=== PATIENT | female | born 1990 | race Two or more races ===

== ENCOUNTER 2017-09-16 09:14 | Emergency (ER) | payer OTHER ==
[~2017-09-16] VITALS: Ht 157.5 cm; Wt 63.5 kg
--- NOTE | 2017-09-16 09:16 | NUR ---
AAOX3, C/O LOWER ABDOMINAL PAIN SINCE LAST NIGHT, DENIES N/V/D. RR IS EVEN AND UNLABORED WITH NAD NOTED. SKIN IS WARM AND DRY. AWAITING MD FOR EVAL.
[2017-09-16 10:20] LABS: BASOPHILS # (AUTO) 0.1 /CMM (0.0-0.2); EOSINOPHILS % (AUTO) 1.9 % (0.0-6.0); HEMATOCRIT 39 % (33-45); HEMOGLOBIN 13.6 g/dL (11.5-14.8); LYMPHOCYTES # (AUTO) 1.7 /CMM (0.8-4.8); LYMPHOCYTES % (AUTO) 29.9 % (20.0-44.0); MEAN CORPUSCULAR HGB CONC 35 g/dl (31.0-36.0); MEAN CORPUSCULAR VOLUME 88 fL (82-100); MONOCYTES # (AUTO) 0.4 /CMM (0.1-1.30); MONOCYTES % (AUTO) 7.5 % (2.0-12.0); NEUTROPHILS # (AUTO) 3.5 /CMM (1.8-8.9); NEUTROPHILS % (AUTO) 59.7 % (43.0-81.0); PLATELET COUNT (AUTO) 367 /CMM (150-450); RDW COEFFICIENT OF VARIATION 11.2 (11.5-15.0); RED BLOOD CELL COUNT(AUTO) 4.43 MIL/uL (4.0-5.2); WHITE BLOOD COUNT (AUTO) 5.8 K/uL (4.3-11.0)
[2017-09-16] MEDS ORDERED: FENTANYL PF 100MCG/2ML AMPUL ONE (10:26)
[2017-09-16 10:27] LABS: CALCIUM, SERUM 8.3 mg/dL (8.5-10.1); CREATININE 0.7 mg/dL (0.6-1.3)
[2017-09-16] MEDS ORDERED: FENTANYL PF 100MCG/2ML AMPUL IV ONE (10:30)
[2017-09-16 10:37] LABS: APPEARANCE,URINE Clear (CLEAR); BILIRUBIN,URINE Negative (NEGATIVE); BLOOD, URINE Small Ery/uL (NEGATIVE); COLOR,URINE Yellow (YELLOW); KETONES,URINE Negative (NEGATIVE); LEUKOCYTE ESTERASE ,URINE Negative (NEGATIVE); NITRITE, URINE Negative (NEGATIVE); PH,URINE 6.5 (5.0-8.0); PROTEIN,URINE Negative (NEGATIVE); UGLUCOSE Negative (NEGATIVE)
[2017-09-16 10:47] LABS: BACTERIA,URINE None seen /HPF (None Seen); SQUAMOUS EPITHELIAL CELL,UR Few /HPF (None Seen); WBC,URINE 0-3 /HPF (0-3)
[2017-09-16 12:25] VITALS: BP 105/57
== END 2017-09-16 12:26 | disposition home or self-care (01) ==
LOC: ER 09:23
DX: R10.30 Lower abdominal pain, unspecified (principal); F17.200 Nicotine dependence, unspecified, uncomplicated; Z88.8 Allergy status to other drugs, medicaments and biological substances; Z88.6 Allergy status to analgesic agent
CPT/HCPCS: 36415; 76856; 80048; 81001; 84703; 85025; 87491; 87591; 96374; 99285; 99406; A4606; J3010; Z7610; 81000-TC

== ENCOUNTER 2018-02-03 18:57 | Emergency (ER) | payer MEDICAID, OTHER ==
[~2018-02-03] VITALS: Ht 157.5 cm; Wt 63.5 kg
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
[2018-02-03] MEDS ORDERED: ACETAMINOPHEN ES 500 MG TABLET ONE (20:04)
[2018-02-03 20:17] VITALS: BP 118/60
[2018-02-03] MEDS ORDERED: ACETAMINOPHEN ES 500 MG TABLET PO ONE (20:30)
== END 2018-02-03 20:18 | disposition home or self-care (01) ==
LOC: ER 19:02
DX: S09.8XXA Other specified injuries of head, initial encounter (principal); F17.200 Nicotine dependence, unspecified, uncomplicated; Z88.8 Allergy status to other drugs, medicaments and biological substances; Z88.6 Allergy status to analgesic agent; Y04.8XXA Assault by other bodily force, initial encounter; Y93.89 Activity, other specified; Y92.89 Other specified places as the place of occurrence of the external cause; Y99.8 Other external cause status
CPT/HCPCS: 99282; 99406; A4606; Z7610

== ENCOUNTER 2019-01-26 08:44 | Emergency (ER) | payer MEDICAID, OTHER ==
[~2019-01-26] VITALS: Ht 157.5 cm; Wt 63.0 kg
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
[2019-01-26] MEDS ORDERED: HYDROCODONE/APAP 5/325MG 1 EACH TABLET PO ONE (09:30)
[2019-01-26] MEDS ORDERED: IBUPROFEN 600 MG TABLET PO ONE ×2 (09:30→09:39)
--- NOTE | 2019-01-26 09:30 | NUR ---
dr. diaz at bedside for eval. cxr tech at bedside.
[2019-01-26] MEDS ORDERED: HYDROCODONE/APAP 5/325MG 1 EACH TABLET ONE (09:39)
--- NOTE | 2019-01-26 11:06 | NUR ---
PATIENT DENIES PAIN AT THIS TIME. NEEDS ATTENDED. PATIENT STATED SOMEONE WILL PICK HER UP AND WILL ANALYTICAL TECH HER HOME. Patient discharged to home in stable condition. Written and verbal after care instructions given. Patient verbalizes understanding of instruction.
[2019-01-26 11:07] VITALS: BP 127/77
== END 2019-01-26 11:08 | disposition home or self-care (01) ==
LOC: ER 08:44
DX: M25.421 Effusion, right elbow (principal); F17.200 Nicotine dependence, unspecified, uncomplicated; Z88.6 Allergy status to analgesic agent; Z91.048 Other nonmedicinal substance allergy status; W01.0XXA Fall on same level from slipping, tripping and stumbling without subsequent striking against object, initial encounter; Y93.89 Activity, other specified; Y92.89 Other specified places as the place of occurrence of the external cause; Y99.8 Other external cause status
CPT/HCPCS: 73080-TC

== ENCOUNTER 2021-05-05 07:58 | Emergency (ER) | payer OTHER ==
[~2021-05-05] VITALS: Ht 124.5 cm; Wt 72.6 kg
--- NOTE | 2021-05-05 08:11 | NUR ---
BIB SELF C/O SORE THROAT, NAUSEA, COUGH, AND ABDOMINAL PAIN X 4 DAYS. AAOX4, BREATHING EVEN AND UNLABORED, PULSES 2+ BILATERALLY. ASSISTED TO ER BED 7. MD AT BEDSIDE.
--- NOTE | 2021-05-05 08:48 | NUR ---
COVID, INFLUENZA, AND STREP SAMPLE OBTAINED AND SENT TO LAB
[2021-05-05] MEDS ORDERED: IBUPROFEN 600 MG TABLET ONE (09:17)
[2021-05-05] MEDS ORDERED: IBUPROFEN 600 MG TABLET PO ONE (09:30)
[2021-05-05] MEDS ORDERED: IBUP-1955 PO (10:30)
[2021-05-05] MEDS ORDERED: ONDA4TAB5 PO (10:30)
--- NOTE | 2021-05-05 10:39 | NUR ---
Patient discharged to home in stable condition. Written and verbal after care instructions given. Patient verbalizes understanding of instruction.
[2021-05-05 10:40] VITALS: BP 116/74
== END 2021-05-05 10:40 | disposition home or self-care (01) ==
LOC: ER 08:03
DX: J02.9 Acute pharyngitis, unspecified (principal); R68.83 Chills (without fever); M79.10 Myalgia, unspecified site; Z20.822 Contact with and (suspected) exposure to COVID-19; Z88.6 Allergy status to analgesic agent; Z91.041 Radiographic dye allergy status
CPT/HCPCS: 87070; 87426; 87804; 87880; 99283; C9803; 86403-TC

== ENCOUNTER 2021-12-16 09:32 | Emergency (ER) | payer OTHER ==
[~2021-12-16] VITALS: Ht 154.9 cm; Wt 74.8 kg
[~2021-12-16 09:32] MED LIST: IBUP-1955 PO; ONDA4TAB5 PO
[2021-12-16 09:50] VITALS: BP 114/73
--- NOTE | 2021-12-16 09:55 | NUR ---
BIBS W/ C.O WORSENING LEFT WRIST/HAND PAIN X3 DAYS, DENIES ANY TRAUMA. PT A/O X4, AMBULATORY. TO CHAIR 1, AWAITING MD WEAVER.
--- NOTE | 2021-12-16 10:33 | NUR ---
DR FRANCOIS W/ PT FOR EVAL
--- NOTE | 2021-12-16 10:40 | NUR ---
HISTORY CARD CLERK W/ PT FOR XRAY
[2021-12-16] MEDS ORDERED: IBUPROFEN 400 MG TABLET PO ONE (11:00)
[2021-12-16] MEDS ORDERED: IBUPROFEN 400 MG TABLET ONE (11:11)
--- NOTE | 2021-12-16 11:15 | NUR ---
GIVEN IBUPROFEN PO INDICATED; MIGUEL A WELL.
[2021-12-16] MEDS ORDERED: IBUP-1957 PO (11:58)
== END 2021-12-16 12:06 | disposition home or self-care (01) ==
LOC: ER 09:39
DX: M25.532 Pain in left wrist (principal); F17.200 Nicotine dependence, unspecified, uncomplicated; Z88.6 Allergy status to analgesic agent; Z88.8 Allergy status to other drugs, medicaments and biological substances
CPT/HCPCS: 73110

== ENCOUNTER 2022-07-29 17:09 | Emergency (ER) | payer OTHER ==
[~2022-07-29] VITALS: Ht 157.5 cm; Wt 74.8 kg
[~2022-07-29 17:09] MED LIST changes: +IBUP-1957 PO
[2022-07-29 17:54] VITALS: BP 100/50
[2022-07-29] MEDS ORDERED: BENZONATATE 100 MG CAPSULE PO PRN (18:30)
[2022-07-29] MEDS ORDERED: IPRATROPIUM NEB FS 0.5 MG/2.5 ML AMPUL.NEB NEB ONE (19:00)
[2022-07-29] MEDS ORDERED: predniSONE 20 MG TABLET PO ONE (19:00)
[2022-07-29] MEDS ORDERED: ALBUTEROL FS 2.5 MG/3 ML VIAL.NEB NEB ONE (19:00)
[2022-07-29] MEDS ORDERED: predniSONE 20 MG TABLET ONE ×2 (19:05→19:08)
[2022-07-29] MEDS ORDERED: IPRATROPIUM NEB FS 0.5 MG/2.5 ML AMPUL.NEB ONE (19:48)
[2022-07-29] MEDS ORDERED: ALBUTEROL FS 2.5 MG/3 ML VIAL.NEB ONE (19:48)
[2022-07-29] MEDS ORDERED: BENZ-13 PO (19:50)
[2022-07-29] MEDS ORDERED: TYL2T PO (19:50)
--- NOTE | 2022-07-29 20:15 | NUR ---
Patient discharged to home in stable condition. RX Written and verbal after care instructions given. Patient verbalizes understanding of instruction. pt ambulatory with a steady gait
== END 2022-07-29 20:19 | disposition home or self-care (01) ==
LOC: ER 17:16
DX: J06.9 Acute upper respiratory infection, unspecified (principal); R05.9 Cough, unspecified; Z20.822 Contact with and (suspected) exposure to COVID-19; Z88.8 Allergy status to other drugs, medicaments and biological substances; Z79.899 Other long term (current) drug therapy
CPT/HCPCS: 99284; 71045; 87426; 87804 ×2; 94640; J7512 ×2; C9803

== ENCOUNTER 2022-10-05 18:30 | Emergency (ER) | payer OTHER ==
[~2022-10-05] VITALS: Ht 157.5 cm; Wt 74.8 kg
[2022-10-05 18:30] VITALS: BP 109/49
[~2022-10-05 18:30] MED LIST changes: +BENZ-13 PO; +TYL2T PO
[2022-10-05] MEDS ORDERED: KETOROLAC TROMETHAMINE INJ 30 MG/ML VIAL IM ONE (19:00)
[2022-10-05] MEDS ORDERED: NAPR-1164 PO (19:20)
[2022-10-05] MEDS ORDERED: KETOROLAC TROMETHAMINE INJ 30 MG/ML VIAL ONE (19:25)
--- NOTE | 2022-10-05 19:26 | NUR ---
RN NOTE TORADOL IM GIVEN ORDERED.
--- NOTE | 2022-10-05 19:41 | NUR ---
RN NOTE PT DISCHARGED IN STABLE CONDITION.
== END 2022-10-05 19:43 | disposition home or self-care (01) ==
LOC: ER 18:32
DX: G56.02 Carpal tunnel syndrome, left upper limb (principal); F17.200 Nicotine dependence, unspecified, uncomplicated; Z79.899 Other long term (current) drug therapy; Z91.040 Latex allergy status; Z88.1 Allergy status to other antibiotic agents
CPT/HCPCS: 99283; 96372; J1885

== ENCOUNTER 2022-10-14 14:19 | Emergency (ER) | payer OTHER ==
[~2022-10-14] VITALS: Ht 157.5 cm; Wt 72.6 kg
[~2022-10-14 14:19] MED LIST changes: +NAPR-1164 PO
[2022-10-14 14:27] VITALS: BP 122/63
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
[2022-10-14] MEDS ORDERED: KETOROLAC TROMETHAMINE INJ 60 MG/2 ML VIAL IM ONE (15:00)
[2022-10-14] MEDS ORDERED: KETOROLAC TROMETHAMINE INJ 30 MG/ML VIAL ONE (15:10)
--- NOTE | 2022-10-14 15:23 | NUR ---
Patient discharged to home in stable condition. Written and verbal after care instructions given. Patient verbalizes understanding of instruction.
== END 2022-10-14 15:24 | disposition home or self-care (01) ==
LOC: ER 14:20
DX: G56.02 Carpal tunnel syndrome, left upper limb (principal); F17.210 Nicotine dependence, cigarettes, uncomplicated; Z79.899 Other long term (current) drug therapy; Z91.040 Latex allergy status; Z88.1 Allergy status to other antibiotic agents
CPT/HCPCS: 99283; 99406; 96372; J1885

== ENCOUNTER → 2023-09-23 | Emergency (ER) | payer MEDICAID, OTHER ==
[~2023-09-23] VITALS: Ht 157.5 cm; Wt 72.6 kg
[~2023-09-23] MED LIST changes: +CYCL5TAB PO; +CYCLOBENZAPRINE 10 MG TABLET ONE; +HYDR-4303 PO; +HYDROCODONE/APAP 5/325MG TABLET ONE; +KETOROLAC TROMETHAMINE 15 MG/ML VIAL ONE; +LIDO30AD10 TP; +LIDOCAINE 5% (PATCH) 1 EA PATCH TP ONE; +METH4TAB17 PO
[2023-09-23 09:45] VITALS: BP 105/73; TEMP 98.2; O2SAT 100
[2023-09-23] MEDS: KETOROLAC TROMETHAMINE 15 MG/ML VIAL IM ONE (10:30)
[2023-09-23] MEDS: LIDOCAINE 5% (PATCH) 1 EA PATCH TP SCH (11:00)
[2023-09-23] MEDS: HYDROCODONE/APAP 5/325MG TABLET PO ONE (11:24)
[2023-09-23] MEDS: CYCLOBENZAPRINE 10 MG TABLET PO ONE (11:24)
[2023-09-23 11:26] LABS: PREGNANCY TEST URINE QUAL NEGATIVE (NEGATIVE)
== END | disposition home or self-care (01) ==
LOC: ER 09:42
DX: M54.41 Lumbago with sciatica, right side (principal); F17.200 Nicotine dependence, unspecified, uncomplicated; Z88.8 Allergy status to other drugs, medicaments and biological substances; Z91.040 Latex allergy status
CPT/HCPCS: 99284; 99406; 96372; 84703; J1885